=== PATIENT | female | born 1985 | race Caucasian/White ===

== ENCOUNTER 2019-07-04 07:25 | Day surgery (SDC) | payer OTHER ==
[2019-07-01 15:49] VITALS: BMI 23.3
[~2019-07-04 07:25] MED LIST: LACTATED RINGERS 1,000 ML IV SCH; MIDAZOLAM 2 MG/2 ML VIAL IV PRN
[2019-07-04 07:49] VITALS: RESP 16; TEMP 97.6
[2019-07-04] MEDS ORDERED: LIDOCAINE 1% INJ 10MG/ML (20 ML MDV) ONE (08:13)
[2019-07-04] MEDS ORDERED: PROPOFOL 10 MG/ML 20 ML VIAL IV ONE (08:13)
--- NOTE | 2019-07-04 08:36 | P.PCN ---
Date of Procedure: 07/04/19 Description of Procedure: BRIEF HISTORY: Patient is a 34-year-old, pleasant, female who presents for outpatient EGD for evaluation of nausea and vomiting. The patient reports that the relationship of intermittent episodes of nausea and vomiting which will usually resolve on her own, the past 4 months she has had frequent episodes of nausea and vomiting which persisted. She states that small amounts of foods such as snacking does not also symptoms but after large meals she will have nausea and vomiting. She does feel that symptoms are worse with stress. PROCEDURE PERFORMED: Esophagogastroduodenoscopy with biopsy. PREOPERATIVE DIAGNOSIS: Nausea and vomiting. ESTIMATED BLOOD LOSS: Minimal. IV sedation per anesthesia. PROCEDURE: After informed consent was obtained, the patient was brought into the endoscopy unit. IV sedation was administered by Anesthesia under continuous monitoring. Initially the Olympus GIF-190 video endoscope was inserted into the mouth. Esophagus intubated without any difficulty. It was gradually advanced into the stomach and duodenum and carefully examined. The bulb and the second part of the duodenum appeared normal, with biopsies taken. The scope at this time was withdrawn to the stomach, adequately insufflated with air, and upon careful examination, mucosa of the antrum, body, cardia and the fundus appeared normal, with some mild punctate erythema in the antrum and body suggestive of mild gastritis with biopsies taken. The scope was then withdrawn into the esophagus. The GE junction was located at 37 cm from the incisors with biopsies taken. The esophagus appeared normal. There were no erosions or ulcerations seen and the patient tolerated the procedure well. IMPRESSION: 1. No masses, ulcers or severe irritation gastric contents to explain patient's symptoms. 2. Mild gastritis antrum and body, biopsied. 3. Biopsies of the duodenum and GE junction. RECOMMENDATIONS: The findings of this examination were discussed with the patient and her . Okay to resume medications and diet. Patient can start a trial of Prilosec to rule out component of GERD at this protruding the symptoms otherwise we will await pathology from biopsies to rule out Helicobacter pylori, celiac sprue or other pathology.
[2019-07-04 08:52] VITALS: BP 116/77; PULSE 66
== END 2019-07-04 09:09 | disposition home or self-care (01) ==
LOC: ORWHC2ENDO 07:25
PROVIDERS: ATTEND Internal Medicine
DX: K29.50 Unspecified chronic gastritis without bleeding (principal); D72.820 Lymphocytosis (symptomatic); Z72.0 Tobacco use
CPT/HCPCS: 81025; 88305; 43239; J2001; J2704